=== PATIENT | male | born 1985 | race Caucasian/White ===

== ENCOUNTER 2017-10-28 15:19 | Emergency (ER) | payer SELFPAY ==
[~2017-10-28] VITALS: Ht 167.6 cm; Wt 61.2 kg
[2017-10-28] MEDS ORDERED: LIDOCAINE-MPF 1%, 5ML INFIL ONE (15:30)
[2017-10-28 17:35] VITALS: BP 153/93
== END 2017-10-28 17:39 | disposition home or self-care (01) ==
LOC: ED 17:33
DX: S61.210A Laceration without foreign body of right index finger without damage to nail, initial encounter (principal); S61.212A Laceration without foreign body of right middle finger without damage to nail, initial encounter; X58.XXXA Exposure to other specified factors, initial encounter; Y93.89 Activity, other specified; Y92.009 Unspecified place in unspecified non-institutional (private) residence as the place of occurrence of the external cause; Y99.8 Other external cause status
CPT/HCPCS: 12001; 99284